=== PATIENT | male | born 1985 ===

== ENCOUNTER 2017-07-23 10:44 | Emergency (ER) | payer OTHER ==
[2017-07-23 11:05] VITALS: TEMP 99.4
--- NOTE | 2017-07-23 11:44 | ED PDOC ---
Arrival/HPI - General Chief Complaint: Back Pain Time Seen by Provider: 07/23/17 11:22 Historian: Patient - History of Present Illness Narrative History of Present Illness (Text): 07/23/17 11:44 A 31 year old male, whose past medical history includes herniated disc, presents to the emergency department complaining of lower back pain, right side worse than left. Patient reports he had a CAT scan done three years ago, back pain from injury at work. Patient reports intermittent pain developed when he woke up. Notes he has been taking Naproxen with no relief. Patient reports back pain radiates down his right leg. Denies any abdominal pain, chest pain, dysuria , bowel changes, numbness in toes or any other complaints at this time. Symptom Onset: Sudden Symptom Course: Unchanged Activities at Onset: Rest Context: Home Past Medical History - Provider Review Nursing Documentation Reviewed: Yes - Infectious Disease Hx of Infectious Diseases: None - Musculoskeletal/Rheumatological Hx Herniated Disk: Yes - Psychiatric Hx Substance Use: No - Anesthesia Hx Anesthesia: No Family/Social History - Physician Review Nursing Documentation Reviewed: Yes Family/Social History: No Known Family HX Smoking Status: Unknown If Ever Smoked Hx Alcohol Use: No Hx Substance Use: No Allergies/Home Meds Allergies/Adverse Reactions: Allergies dexamethasone [From Decadron] Allergy (Verified 07/23/17 11:06) RASH Review of Systems - Physician Review All systems were reviewed & negative as marked: Yes - Review of Systems Cardiovascular: absent: Chest Pain Gastrointestinal: absent: Abdominal Pain, Stool Changes Genitourinary Male: absent: Dysuria Musculoskeletal: Back Pain (lower back pain) Physical Exam - Physical Exam Narrative Physical Exam (Text): 07/23/17 11:42 Head: Atraumatic. Normocephalic. Eyes: PERRL. EOMI. Conjunctivae are not pale. ENT: Mucous membranes are moist and intact. Oropharynx is clear and symmetric. Neck: Supple. Full ROM. No JVD. No lymphadenopathy. Cardiovascular: Regular rate. Regular rhythm. No murmurs, rubs, or gallops. Distal pulses are 2+ and symmetric. Pulmonary/Chest: No evidence of respiratory distress. Clear to auscultation bilaterally. No wheezing, rales or rhonchi. Abdominal: Soft and non-distended. There is no tenderness. No rebound, guarding, or rigidity. No organomegaly. Good bowel sounds. Back: No CVA tenderness. Extremities: No edema. No cyanosis. No clubbing. Full range of motion in all extremities. No calf tenderness. Skin: Skin is warm and dry. No petechiae. No purpura. Neurological: Alert, awake, and oriented to person, place, time, and situation. Normal speech. Psychiatric: Good eye contact. Normal interaction, affect, and behavior. Vital Signs Reviewed: Yes Vital Signs Temp Pulse Resp BP Pulse Ox 07/23/17 11:01 99.4 F 98 H 16 137/84 100 Temperature: Afebrile Blood Pressure: Normal Pulse: Regular Respiratory Rate: Normal Appearance: Positive for: Well-Appearing, Non-Toxic, Comfortable Pain Distress: None Mental Status: Positive for: Alert and Oriented X 3 Medical Decision Making ED Course and Treatment: 07/23/17 11:42 Impression: A 31 year old male with lower back pain. Differential Diagnosis included but are not limited to: lumbar radiculopathy vs. lumbar strain Plan: -- Flexeril, Toradol -- Reassess and disposition Progress Notes: Will discharged patient. Patient advised to follow up with clinic. - Medication Orders Current Medication Orders: Discontinued Medications Cyclobenzaprine HCl (Flexeril) 10 mg PO STAT STA Stop: 07/23/17 11:39 Ketorolac Tromethamine (Toradol) 30 mg IM STAT STA Stop: 07/23/17 11:38 - Scribe Statement The provider has reviewed the documentation as recorded by the Binh Xiong Provider Scribe Attestation: All medical record entries made by the Binh were at my direction and personally dictated by me. I have reviewed the chart and agree that the record accurately reflects my personal performance of the history, physical exam, medical decision making, and the department course for this patient. I have also personally directed, reviewed, and agree with the discharge instructions and disposition. Disposition/Present on Arrival - Present on Arrival History of DVT/PE: No History of Uncontrolled Diabetes: No Urinary Catheter: No History of Decub. Ulcer: No History Surgical Site Infection Following: None - Disposition Diagnosis: Lumbar strain Disposition: HOME/ ROUTINE Condition: GOOD Discharge Instructions (ExitCare): Acute Low Back Pain (ED), Lumbar Radiculopathy (ED) Print Language: GREEK Additional Instructions: For any weakness, any abdominal pain, any urinary symptoms, any bowel symptoms, any numbness or weakness, any persistent or worsening of any symptoms, get rechecked. Follow-up as directed. Prescriptions: Cyclobenzaprine [Cyclobenzaprine HCl] 10 mg PO TID PRN #12 tab PRN Reason: Muscle Spasm Naproxen 250 mg PO BID PRN #10 tablet PRN Reason: Pain, Mild (1-3) Forms: [employer] ([place]kin[place])
[2017-07-23 11:56] VITALS: BP 124/78; PULSE 72; RESP 18; O2SAT 98
== END 2017-07-23 11:55 | disposition home or self-care (01) ==
LOC: ED 10:44
DX: S39.012A Strain of muscle, fascia and tendon of lower back, initial encounter (principal); X58.XXXA Exposure to other specified factors, initial encounter; Y92.89 Other specified places as the place of occurrence of the external cause
CPT/HCPCS: 96372; 99283; J1885